=== PATIENT | female | born 1960 | race Caucasian/White ===

== ENCOUNTER → 2018-09-23 | Outpatient (CLI) | payer MEDICARE ==
--- NOTE | 2018-09-23 08:22 | MR ---
EXAMINATION TYPE: MR lumbar spine wo con DATE OF EXAM: 09/23/2018 COMPARISON: Lumbar spine x-ray November 08, 2015. HISTORY: Low back pain per order. Severe back pain for years with pain going into both lower extremit ies and loss of 2 inches of height per patient. TECHNIQUE: Multiplanar, multisequence imaging of the lumbar spine is performed without IV contrast. FINDINGS: Sagittal images of the lumbar spine show vertebral body heights to appear satisfactory. The re is grade 1 anterolisthesis of L4 on L5 measuring roughly 7 mm on sagittal images. Multilevel disc desiccation is present. Multilevel moderate disc space narrowing is seen. Vacuum disc phenomenon L4- L5 level is noted. No large posterior disc herniations are seen on sagittal images. The conus medulla ris is normal in position and signal ending T12-L1 disc space level. Some heterogeneous Modic type II endplate changes anterior L5-S1 level with mild anterior spurring is present. Round lesion of low T1 and T2 signal superior L2 vertebra sagittal image 7 correlates with round sclerotic lesion plain earnestine ms favoring benign bone island. Axial images at the T12-L1 level shows broad-based posterior disc protrusion effacing anterior thecal sac on axial image 28. Bilateral neural foramina are patent. Axial images at L1-L2 level show mild broad disc bulge minimally effacing anterior thecal sac slightl y more prominent left paracentral component. Bilateral neural foramina are patent. Axial images at the L2-L3 level show mild/moderate broad disc bulge effacing anterior thecal sac with mild to moderate facet degenerative changes and ligamentum flavum hypertrophy effacing posterior lat eral thecal sac. There is mild right greater than left bilateral anterior inferior neural foraminal n arrowing. Axial images at the L3-L4 level show moderate facet degenerative changes and ligament flavum hypertro phy effacing posterior lateral thecal sac. There is moderate broad-based posterior disc protrusion ef facing anterior thecal sac. There is mild to moderate bilateral neural foraminal narrowing noted. Axial images at the L4-L5 level show advanced facet degenerative changes bilaterally. There is spondy lolisthesis with additional focal posterior disc herniation. Most prominent spinal canal stenosis is seen at this level axial image 7 and sagittal image 8. There is mild bilateral neural foraminal narro wing noted at this level on sagittal images. Axial images at the L5-S1 level show moderate to advanced facet degenerative changes bilaterally. The re is mild broad disc bulge seen. Spinal canal is preserved. There is moderate bilateral inferior clark ral foraminal narrowing with some encroachment on right L5 nerve difficult to exclude sagittal image 12. No suspicious incidental retroperitoneal findings are seen. IMPRESSION: Multilevel degenerative changes in lumbar spine as detailed above. Attention to L4-L5 lev el where there is spondylolisthesis and degenerative change causing most prominent spinal canal steno sis.
== END | disposition home or self-care (01) ==
LOC: RADMRIMAIN 06:21
PROVIDERS: ATTEND Internal Medicine
DX: M48.061 Spinal stenosis, lumbar region without neurogenic claudication (principal); M43.16 Spondylolisthesis, lumbar region; M47.816 Spondylosis without myelopathy or radiculopathy, lumbar region
CPT/HCPCS: 72148

== ENCOUNTER 2019-08-04 08:06 | Day surgery (SDC) | payer MEDICARE ==
[2019-07-30 16:06] VITALS: BMI 38.7
[~2019-08-04 08:06] MED LIST: LACTATED RINGERS 1,000 ML IV SCH; LIDOCAINE 1% 20 ML VIAL (10MG/ML) FOR IV START INTRADERMA PRN
[2019-08-04 08:34] VITALS: TEMP 98.3
[2019-08-04] MEDS ORDERED: LIDOCAINE 1% INJ 10MG/ML (20 ML MDV) ONE (08:58)
[2019-08-04] MEDS ORDERED: PROPOFOL 10 MG/ML 20 ML VIAL IV ONE (08:58)
--- NOTE | 2019-08-04 09:12 | P.GSHP ---
History of Present Illness H&P Date: 08/04/19 Chief Complaint: Screening colonoscopy This a 59-year-old female who presents today for screening colonoscopy. Patient denies any significant GI complaints. Past Medical History Past Medical History: Asthma, Hyperlipidemia, Hypertension, Osteoarthritis (OA), Pulmonary Embolus (PE), Thyroid Disorder Additional Past Medical History / Comment(s): states has "slow bowel, has bowel movements every few days" past hx of hypertension, states no longer on meds after 90 lb weight loss, states has cardiomyopathy, chronic back pain History of Any Multi-Drug Resistant Organisms: None Reported Past Surgical History: Adenoidectomy, Section, Hernia Repair, Hysterectomy, Joint Replacement, Orthopedic Surgery, Tonsillectomy Additional Past Surgical History / Comment(s): wandy knee replacement, D & C, umb hernia repair Past Anesthesia/Blood Transfusion Reactions: Previous Problems w/ Anesthesia Additional Past Anesthesia/Blood Transfusion Reaction / Comment(s): states "woke up crying" Smoking Status: Never smoker - Past Family History Mother Family Medical History: No Reported History Father Family Medical History: Deep Vein Thrombosis (DVT) Medications and Allergies Home Medications Medication Instructions Recorded Confirmed Type Simvastatin [Zocor] 10 mg PO HS 04/28/14 08/04/19 History ALPRAZolam [Xanax] 1 mg PO HS 07/30/19 08/04/19 History Albuterol Inhaler [Ventolin Hfa 1 - 2 puff INHALATION RT-Q6H PRN 07/30/19 08/04/19 History Inhaler] Furosemide [Lasix] 40 mg PO BID 07/30/19 08/04/19 History Levothyroxine Sodium [Synthroid] 112 mcg PO DAILY 07/30/19 08/04/19 History traMADol HCL [Ultram] 50 mg PO Q6HR PRN 07/30/19 08/04/19 History Allergies Allergy/AdvReac Type Severity Reaction Status Date / Time codeine Allergy Rash/Hives Verified 07/30/19 15:56 Penicillins Allergy Unknown Verified 07/30/19 15:56 Childhood Sulfa (Sulfonamide Allergy Unknown Verified 07/30/19 15:56 Antibiotics) Childhood Surgical - Exam Vital Signs Temp Pulse Resp BP Pulse Ox 98.3 F 54 L 16 109/57 99 08/04/19 08:31 08/04/19 08:31 08/04/19 08:31 08/04/19 08:31 08/04/19 08:31 - General well developed, well nourished, no distress - Eyes PERRL - ENT normal pinna - Neck no masses - Respiratory normal expansion - Cardiovascular Rhythm: regular - Abdomen Abdomen: soft, non tender Assessment and Plan Assessment: We'll perform screening colonoscopy
--- NOTE | 2019-08-04 09:26 | P.OP ---
Date of Procedure: 08/04/19 Preoperative Diagnosis: Screening colonoscopy Postoperative Diagnosis: Normal colon Procedure(s) Performed: Colonoscopy Anesthesia: MAC Surgeon: Richard Garcia Pathology: other Condition: stable Disposition: PACU Description of Procedure: PROCEDURE: The patient was placed on the endoscopy table in the lateral position. Digital rectal examination was performed which revealed no abnormalities. . Flexible colonoscope was then placed in the patient's anus and passed throughout the entire colon. The ileocecal valve was visualized. The cecum, ascending, transverse, descending and sigmoid colon were normal. The rectum was normal as well. There were no masses, polyps or diverticula noted in the entire colon. SUMMARY OF FINDINGS: Normal colonoscopy.
[2019-08-04 09:37] VITALS: RESP 18
[2019-08-04 10:01] VITALS: BP 100/67; PULSE 58
== END 2019-08-04 10:01 | disposition home or self-care (01) ==
LOC: ORWHC2ENDO 08:06
PROVIDERS: ATTEND Surgery
DX: Z12.11 Encounter for screening for malignant neoplasm of colon (principal); E78.5 Hyperlipidemia, unspecified; J45.909 Unspecified asthma, uncomplicated; M19.90 Unspecified osteoarthritis, unspecified site; I11.9 Hypertensive heart disease without heart failure; I43 Cardiomyopathy in diseases classified elsewhere; E07.9 Disorder of thyroid, unspecified; M54.5 Low back pain; G89.29 Other chronic pain; Z88.2 Allergy status to sulfonamides; Z88.5 Allergy status to narcotic agent; Z86.711 Personal history of pulmonary embolism; Z88.0 Allergy status to penicillin; Z96.653 Presence of artificial knee joint, bilateral; Z84.89 Family history of other specified conditions; Z79.890 Hormone replacement therapy; Z79.899 Other long term (current) drug therapy
CPT/HCPCS: J2001; J2704; G0121; 45378

== ENCOUNTER → 2022-01-24 | Outpatient (CLI) | payer MEDICARE ==
[2022-01-24 14:48] LABS: Partial Thromboplastin Time 23.6 sec (22.0-30.0); Prothrombin Time 10.8 sec (9.0-12.0)
[2022-01-24 18:55] LABS: Basophils # (A) 0.04 X 10*3/uL (0.00-0.10); Basophils % (A) 0.8 %; Eosinophils # (A) 0.12 X 10*3/uL (0.04-0.35); Eosinophils % (A) 2.3 %; HGB 12.8 g/dL (12.0-15.0); Immature Grans, Automated 0.2 %; Lymphocytes # (A) 1.84 X 10*3/uL (0.90-5.00); Lymphocytes % (A) 34.5 %; MCH 28.3 pg (27.0-32.0); MCHC 31.2 g/dL (32.0-37.0); MCV 90.5 fL (80.0-97.0); Mean Platelet Volume 10.3 fL (9.5-12.2); Monocytes # (A) 0.51 X 10*3/uL (0.20-1.00); Monocytes % (A) 9.6 %; NRBC Per 100 WBC 0 /100 WBCS (0.0-0.0); Neutrophils # (A) 2.81 X 10*3/uL (1.80-7.70); Neutrophils % (A) 52.6 %; Platelet Count 326 X 10*3/uL (140-440); RBC 4.53 X 10*6/uL (4.10-5.20); RDW 12.9 % (11.5-14.5); WBC 5.33 X 10*3/uL (4.50-10.00)
[2022-01-24 19:45] LABS: ALT 13 U/L (8-44); AST 19 U/L (13-35); African American GFR (CKD) 75.6 (60.0-200.0); Albumin 4.1 g/dL (3.8-4.9); Albumin/Globulin Ratio 1.29 (1.60-3.17); Alkaline Phosphatase 70 U/L (41-126); BUN/Creat Ratio 24.39 Ratio (12.00-20.00); Calcium 9.1 mg/dL (8.7-10.3); Carbon Dioxide 28.4 mmol/L (20.0-27.5); Chloride 98 mmol/L (96-109); Chol/HDL Ratio 3.66 Ratio; Globulin 3.2 g/dL (1.6-3.3); Glucose 90 mg/dL (70-110); LDL Cholesterol,Calculated 198.2 mg/dL (0.0-131.0); Non-African American GFR(CKD) 65.2 (60.0-200.0); Potassium 3.7 mmol/L (3.5-5.5); Sodium 138 mmol/L (135-145); Total Protein 7.3 g/dL (6.2-8.2)
== END | disposition home or self-care (01) ==
LOC: LABWHC1 13:56
PROVIDERS: ATTEND Internal Medicine
DX: Z01.812 Encounter for preprocedural laboratory examination (principal)
CPT/HCPCS: 36415; 80053; 80061; 85025; 85610; 85730